=== PATIENT | male | born 1965 | race Two or more races ===

== ENCOUNTER 2020-10-05 11:56 | Emergency (ER) | payer OTHER, MEDICAID ==
[~2020-10-05] VITALS: Ht 180.3 cm; Wt 102.1 kg
[~2020-10-05 11:56] MED LIST: ARIP1TAB7 PO; CLON0.5T10 PO; GABA300C10 PO; QUET300T14 PO; QUET50TA PO
[2020-10-05 12:05] VITALS: BP 114/78
[2020-10-05] MEDS ORDERED: KETOROLAC TROMETH 60MG/2ML VIAL IM ONE (13:00)
== END 2020-10-05 14:13 | disposition home or self-care (01) ==
LOC: ER 11:56
DX: S29.012A Strain of muscle and tendon of back wall of thorax, initial encounter (principal); S30.0XXA Contusion of lower back and pelvis, initial encounter; M47.816 Spondylosis without myelopathy or radiculopathy, lumbar region; E11.9 Type 2 diabetes mellitus without complications; I10 Essential (primary) hypertension; W01.0XXA Fall on same level from slipping, tripping and stumbling without subsequent striking against object, initial encounter; Y93.89 Activity, other specified; Y92.89 Other specified places as the place of occurrence of the external cause; Y99.8 Other external cause status
CPT/HCPCS: 72070; 72220; 99283; J1885